=== PATIENT | male | born 1960 | race Caucasian/White ===

== ENCOUNTER 2018-04-03 18:47 | Emergency (ER) | payer OTHER, SELFPAY ==
[2018-04-03 18:55] VITALS: BP 158/81; PULSE 70; RESP 20; TEMP 36.4; O2SAT 100; BMI 25.6
--- NOTE | 2018-04-03 20:09 | ED_ITS ---
HPI - Animal Bite <Cony Dunham PA-C - Last Filed: 04/03/18 22:07> General Chief Complaint: Animal Bite Stated Complaint: bat touched my head Time Seen by Provider: 04/03/18 19:24 Source: patient Mode of arrival: ambulatory Limitations: no limitations History of Present Illness HPI narrative: This healthy 57-year-old male states he was standing on a deck near the water when he felt what he thought was a moth on the back of his head, but his friend saw this and thought it was larger, like a swallow or a bat flying close to his head. He states they later saw bat flying around outside, so he became concerned about the contact. He states he is feeling fine other than being concerned about needing rabies prophylaxis. Did not note any specific scratch or bite but contact was behind him. He was wearing a long sleeve short and pants. Related Data Home Medications Medication Instructions Recorded Confirmed No Known Home Medications 04/03/18 04/03/18 Allergies Allergy/AdvReac Type Severity Reaction Status Date / Time No Known Drug Allergies Allergy Verified 04/03/18 19:00 Review of Systems <Cony Dunham PA-C - Last Filed: 04/03/18 22:07> Review of Systems ROS Unobtainable: All systems reviewed & are unremarkable except as noted in HPI and below PFSH <Cony Dunham PA-C - Last Filed: 04/03/18 22:07> Comment: Occasional ETOH Exam <AYANA Bradshaw Last Filed: 04/03/18 22:07> Narrative Exam Narrative: GENERAL APPEARANCE: Patient sitting comfortably, in no distress. HEENT: PERRL, EOMI, NORMAL OROPHARYNX LUNGS: Clear to auscultation bilaterally. HEART: Rate and rhythm regular without murmur, normal S1 and S2, no S3 or S4. DERMATOLOGIC: There is no visible erythema, abrasion, or bite wounds on the posterior scalp where patient indicates contact. He does have thick hair. There is no visible wound on the neck, ears, or face Initial Vital Signs Initial Vital Signs: Vital Signs Temperature 97.6 F 04/03/18 18:55 Pulse Rate 70 04/03/18 18:55 Respiratory Rate 20 04/03/18 18:55 Blood Pressure 158/81 H 04/03/18 18:55 Pulse Oximetry 100 04/03/18 18:55 <Brandi Alvarez DO - Last Filed: 04/04/18 00:51> Initial Vital Signs Initial Vital Signs: Vital Signs Temperature 97.6 F 04/03/18 18:55 Pulse Rate 70 04/03/18 18:55 Respiratory Rate 20 04/03/18 18:55 Blood Pressure 158/81 H 04/03/18 18:55 Pulse Oximetry 100 04/03/18 18:55 Course <Cony Dunham PA-C - Last Filed: 04/03/18 22:07> Additional Information: On thorough examination there is no evidence of any type of skin wound. Patient was still concerned about possibly needing rabies prophylaxis, so I was able to speak with the on duty lead officer at the [facility] who agreed in this setting there was unlikely any contact with a rabid bat, and that a bat would be very unlikely to be able to scratch or bite through patient's hair. She did not recommend rabies prophylaxis. Patient is not positive that it was a bat or that it actually made contact ( stated in retrospect the bat could've been chasing an insect that flew by and brushed him). I gave him number for health department as they advised to contact if he has further questions Vital Signs - 8 hr 04/03/18 18:55 Temperature 97.6 F Pulse Rate 70 Respiratory Rate 20 Blood Pressure 158/81 H Pulse Oximetry 100 <Brandi Alvarez DO - Last Filed: 04/04/18 00:51> Vital Signs - 8 hr 04/03/18 18:55 Temperature 97.6 F Pulse Rate 70 Respiratory Rate 20 Blood Pressure 158/81 H Pulse Oximetry 100 Discharge Plan Departure Patient Disposition: Home Clinical Impression: Exposure to bat without known bite Discharge Date/Time: 04/03/18 21:12 Interventions: ED Discharge Assessment Last Done: 04/03/18 21:12 Activity Restrictions/Additional Instructions: On examination today, you do not appear to have any bite, scratch, or wound related to the possible bat exposure that you experienced earlier this evening. Since you were awake, aware and this occurred outdoors with a normally behaving animal, we do not recommend treating with rabies vaccine since it can have significant side effects. I confirmed this with the lead communicable disease officer [facility] who had the same advice. She said that if you have further questions, feel free to call their office when open as they deal with bat contact very frequently Health Department Hours: 8:30 a.m. ? 4:30 p.m. [address] [place] [address] FAX: Prescriptions: No Action No Known Home Medications RF: 0 Referrals: Markus Vasquez MD [Other] <Brandi Alvarez, DO - Last Filed: 04/04/18 00:51> Cosign ED Attending Sanjivature Attestation: I was immediately available in the department for consultation. Documentation has been reviewed. I agree with assessment and plan.
--- NOTE | 2018-04-03 21:05 | PC.NURSE ---
Pt had something fly close to his head, doesn't think it actually touched him. Friend stated, they saw a bat flying around. Pt has no scratches or injuries to body or head related to this incident.
== END 2018-04-03 21:12 | disposition home or self-care (01) ==
PROVIDERS: Emergency Provider Internal Medicine
DX: Z20.9 Contact with and (suspected) exposure to unspecified communicable disease (principal)
CPT/HCPCS: 99282